=== PATIENT | female | born 2000 | race Caucasian/White ===

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

== ENCOUNTER 2020-11-20 12:19 | Outpatient (CLI) | payer BC, SELFPAY ==
[2020-11-20 13:21] LABS: Beta HCG Quantitative < 2.39 mIU/ML
== END 2020-11-20 12:20 | disposition home or self-care (01) ==
PROVIDERS: Visit Provider Obstetrics & Gynecology
DX: N92.6 Irregular menstruation, unspecified (principal)
CPT/HCPCS: 36415; 84702